=== PATIENT | male | born 1995 | race Caucasian/White ===

== ENCOUNTER 2021-07-25 07:36 | Outpatient (REF) | payer OTHER, SELFPAY ==
--- NOTE | ~2021-07-25 | XR_ITS ---
EXAMINATION: XR SHOULDER, LEFT CLINICAL INFORMATION: Pain in unspecified shoulder COMPARISON: 04/23/2017 TECHNIQUE: AP external rotation, Grashey, scapular Y, and axillary views of the left shoulder. FINDINGS: New from the prior study is osteophytosis of the inferior margin of the glenoid and inferior aspect of the humeral head. No acute fracture or dislocation of the left shoulder or clavicle. Visualized left lung and ribs are normal. XR/XR shoulder LT min 2V IMPRESSION: New/increased left glenohumeral osteoarthritis.
== END 2021-07-25 07:37 | disposition home or self-care (01) ==
LOC: HO.HOSX 07:36
PROVIDERS: Visit Provider Orthopaedic Surgery
DX: M19.012 Primary osteoarthritis, left shoulder (principal)
CPT/HCPCS: 73030; 99202